=== PATIENT | female | born 1970 | race African-American/Black ===

== ENCOUNTER 2016-11-28 10:13 | Day surgery (SDC) | payer MEDICAID, OTHER ==
[2016-11-28] MEDS ORDERED: D5 LR 1000 ML 1,000 ML IV ONE (10:19)
[2016-11-28] MEDS ORDERED: ZOFRAN INJ 4 MG VIAL ONE (10:57)
[2016-11-28] MEDS ORDERED: DIPRIVAN VIAL 20 ML ONE (11:42)
[2016-11-28] MEDS ORDERED: ROBINUL ONE (12:16)
[2016-11-28 12:21] VITALS: BP 140/90
== END 2016-11-28 12:20 | disposition home or self-care (01) ==
LOC: SURG1 10:13
PROVIDERS: ATTEND Internal Medicine Gastroenterology
PROC: 0DB88ZX Excision of Small Intestine, Via Natural or Artificial Opening Endoscopic, Diagnostic (ICD-10-PCS; principal; 2016-11-28 11:30)
PROC: 0DB68ZX Excision of Stomach, Via Natural or Artificial Opening Endoscopic, Diagnostic (ICD-10-PCS; principal; 2016-11-28 11:30)
PROC: 0DJ08ZZ Inspection of Upper Intestinal Tract, Via Natural or Artificial Opening Endoscopic (ICD-10-PCS; principal; 2016-11-28 11:30)
DX: R10.13 Epigastric pain (principal); K21.9 Gastro-esophageal reflux disease without esophagitis; R12 Heartburn; R19.7 Diarrhea, unspecified; D50.8 Other iron deficiency anemias; K20.8 Other esophagitis; K22.10 Ulcer of esophagus without bleeding; K29.60 Other gastritis without bleeding; Z87.19 Personal history of other diseases of the digestive system
CPT/HCPCS: A4217; J2405; J3490; J7120